=== PATIENT | male | born 1950 | race Caucasian/White ===

== ENCOUNTER 2018-10-08 14:00 | Outpatient (RCR) | payer OTHER, SELFPAY ==
[2018-06-16 14:27] VITALS: BP 122/80; BP 128/78; O2SAT 98; BMI 26.9
[2018-07-13 15:30] VITALS: BP 112/60
[2018-08-11 07:38] VITALS: BP 106/68; RESP 16
[2018-09-07 15:47] VITALS: BP 138/80
[2018-10-08 14:40] VITALS: BMI 24.0
[2018-10-08 15:24] VITALS: BP 114/70
== END 2018-10-14 15:23 ==
LOC: CAR 14:00
PROVIDERS: Visit Provider Ophthalmology
DX: I21.A9 Other myocardial infarction type (principal)
CPT/HCPCS: 93797; 93798